=== PATIENT | male | born 1965 | race Caucasian/White ===

== ENCOUNTER 2022-12-29 11:06 | Outpatient (CLI) | payer BC ==
[2022-12-29] MEDS ORDERED: Iopamidol 370 76% 100 ML VIAL ONE (12:32)
== END 2022-12-29 11:07 | disposition home or self-care (01) ==
LOC: BICCT 11:06
PROVIDERS: ATTEND Surgery
DX: K57.92 Diverticulitis of intestine, part unspecified, without perforation or abscess without bleeding (principal); Z93.3 Colostomy status; K57.30 Diverticulosis of large intestine without perforation or abscess without bleeding
CPT/HCPCS: 74177; Q9967

== ENCOUNTER 2023-01-27 08:30 | Inpatient (IN) | payer BC ==
[2023-02-02] MEDS ORDERED: Midazolam HCl 2 mg/2 ml Vial ONE (07:59)
[2023-02-02] MEDS ORDERED: Bupivacaine PF 0.5% 30 ML VIAL ONE (07:59)
[2023-02-02] MEDS ORDERED: fentaNYL 50 mcg/mL 1 mL Vial ONE ×4 (07:59→13:01)
[2023-02-02] MEDS ORDERED: Lidocaine 1% (PF) 30 ML VIAL ONE (07:59)
[2023-02-02] MEDS ORDERED: fentaNYL PF 100 MCG/2 ML SYRINGE ONE (09:31)
[2023-02-02] MEDS ORDERED: Sodium Chloride 0.9% 100 ML ONE (09:34)
[2023-02-02] MEDS ORDERED: cefOXitin 2 GM VIAL ONE (09:34)
[2023-02-02] MEDS ORDERED: Glycopyrrolate 0.2 MG/ML 5 ML SYRINGE ONE (09:47)
[2023-02-02] MEDS ORDERED: Bupivacaine HCl 0.5%/Epinephrine 1:200,000/PF 30 ml Vial ONE (09:47)
[2023-02-02] MEDS ORDERED: PROPOFOL 200 MG/20 ML VIAL ONE (09:47)
[2023-02-02] MEDS ORDERED: Dexamethasone 20 MG/5 ML VIAL ONE ×2 (09:47)
[2023-02-02] MEDS ORDERED: PHENYLEPHRINE-NS 100 MCG/ML 10 ML SYRINGE ONE (09:47)
[2023-02-02] MEDS ORDERED: NEOSTIGMINE 3 MG/3 ML SYR 3 MG/3 ML SYRINGE ONE (09:47)
[2023-02-02] MEDS ORDERED: Ondansetron PF 4 MG/2 ML Vial ONE (09:47)
[2023-02-02] MEDS ORDERED: Rocuronium Bromide 10 MG/ML (10ML VIAL) ONE (09:47)
[2023-02-02] MEDS ORDERED: ePHEDrine Sulfate 50 MG/10 ML VIAL ONE (09:47)
[2023-02-02] MEDS ORDERED: Lidocaine 1% PF 5 ML VIAL ONE (09:47)
[2023-02-02] MEDS ORDERED: Ketorolac Tromethamine 30 MG/ML VIAL IVP PRN (12:29)
[2023-02-02] MEDS ORDERED: Promethazine HCl 25 MG/ML VIAL IM PRN ×2 (12:29→13:45)
[2023-02-02] MEDS ORDERED: Ondansetron PF 4 MG/2 ML Vial IVP PRN ×2 (12:29→13:45)
[2023-02-02] MEDS ORDERED: Ipratropium/Albuterol 3 ML NEB NEB PRN (12:29)
[2023-02-02] MEDS ORDERED: hydrALAZINE 20 MG/ML VIAL SLOW IVP PRN (12:29)
[2023-02-02] MEDS ORDERED: Ketorolac Tromethamine 30 MG/ML VIAL ONE (13:08)
[2023-02-02] MEDS ORDERED: diphenhydrAMINE 25 MG CAP PO PRN (13:45)
[2023-02-02] MEDS ORDERED: Naloxone HCl 0.4 mg/ml Vial IV PRN (13:45)
[2023-02-02] MEDS ORDERED: Zolpidem Tartrate 5 MG TAB PO PRN (13:45)
[2023-02-02] MEDS ORDERED: diphenhydrAMINE 50 MG/ML VIAL IM/IV PRN (13:45)
[2023-02-02] MEDS: D5 1/2 NS w/20 mEq KCL 1,000 ML IV SCH (16:09)
[2023-02-02] MEDS: Acetaminophen 325 MG TAB PO SCH ×2 (16:24→21:33)
[2023-02-02] MEDS: cefOXitin 2 GM in Sodium Chloride 0.9% 100 ML IVPB SCH (17:41)
[2023-02-02] MEDS: Famotidine 20 MG TAB PO SCH (21:33)
[2023-02-02] MEDS: Famotidine/PF 20 mg/2ml Vial SLOW IVP SCH (21:34)
[2023-02-03] MEDS: cefOXitin 2 GM in Sodium Chloride 0.9% 100 ML IVPB SCH (01:13)
[2023-02-03] MEDS: Acetaminophen 325 MG TAB PO SCH ×4 (01:14→21:54)
[2023-02-03] MEDS: D5 1/2 NS w/20 mEq KCL 1,000 ML IV SCH ×4 (01:14→21:58)
[2023-02-03 05:41] LABS: #Monocytes 1.8 thou/uL (0.11-0.59); #Neutrophils 10.5 thou/uL (1.40-6.50); %Basophils 0.1 % (0.0-1.0); %Eosinophils 0.1 % (0.0-10.0); %Lymphocytes 10.5 % (21.0-51.0); %Monocytes 13.1 % (0.0-10.0); %Neutrophils 75.8 % (42.0-75.0); Hemoglobin 14.5 g/dL (14.0-18.0); Mean Corpuscular HGB CONC 34.7 g/dL (32.0-36.0); Mean Corpuscular Hemoglobin 31.1 pg (27.0-31.0); Mean Corpuscular Volume 89.7 fl (78.0-98.0); Mean Platelet Volume 9.1 fL (7.4-10.4); Platelet Count 275 10x3/uL (130-400); RBC Distribution Width 13.4 % (11.5-14.5); Red Blood Cell (RBC) Count 4.66 mill/uL (4.70-6.10); White Blood Cell (WBC) Count 13.9 10x3/uL (4.8-10.8)
[2023-02-03] MEDS: Famotidine 20 MG TAB PO SCH ×2 (08:55→21:54)
[2023-02-03 09:16] LABS: Anion Gap 17 mmol/L (10-20); Calc. Creatinine Clearance 91 mL/min (70-130); Calcium 8.8 mg/dL (7.8-10.44); Carbon Dioxide 17 mmol/L (22-29); Chloride 105 mmol/L (98-107); Glucose 146 mg/dL (70-105); Potassium 4.5 mmol/L (3.5-5.1); Sodium 134 mmol/L (136-145)
[2023-02-03 09:17] LABS: BUN (Urea Nitrogen) 23 mg/dL (8.4-25.7); Estimated GFR 69
[2023-02-03] MEDS: Fentanyl CADD 100 ML IVPB SCH (10:07)
[2023-02-03] MEDS: Famotidine/PF 20 mg/2ml Vial SLOW IVP SCH ×2 (13:27→21:56)
[2023-02-04] MEDS: Acetaminophen 325 MG TAB PO SCH ×4 (01:32→18:59)
[2023-02-04] MEDS: Fentanyl CADD 100 ML IVPB SCH (02:25)
[2023-02-04] MEDS: D5 1/2 NS w/20 mEq KCL 1,000 ML IV SCH ×4 (03:05→23:16)
[2023-02-04] MEDS: Famotidine/PF 20 mg/2ml Vial SLOW IVP SCH ×2 (10:09→21:19)
[2023-02-04] MEDS: Famotidine 20 MG TAB PO SCH ×2 (10:10→21:15)
[2023-02-04] MEDS ORDERED: HYDROcodone/Acetaminophen 10/325 mg Tablet PO PRN ×3 (13:20→13:21)
[2023-02-04] MEDS ORDERED: fentaNYL 50 mcg/mL 1 mL Vial SLOW IVP PRN (13:24)
[2023-02-04 14:10] VITALS: BMI 32.9
[2023-02-04] MEDS: HYDROcodone/Acetaminophen 10/325 mg Tablet PO PRN ×2 (17:28→21:15)
[2023-02-04] MEDS: traMADol HCl 50 MG TAB PO PRN (18:58)
[2023-02-05] MEDS: traMADol HCl 50 MG TAB PO PRN ×3 (00:35→11:14)
[2023-02-05] MEDS: Acetaminophen 325 MG TAB PO SCH ×2 (03:06→09:23)
[2023-02-05] MEDS: D5 1/2 NS w/20 mEq KCL 1,000 ML IV SCH (07:17)
[2023-02-05 08:08] VITALS: TEMP 99.1
[2023-02-05] MEDS: HYDROcodone/Acetaminophen 10/325 mg Tablet PO PRN (09:23)
[2023-02-05] MEDS: Famotidine 20 MG TAB PO SCH (09:24)
[2023-02-05] MEDS: Famotidine/PF 20 mg/2ml Vial SLOW IVP SCH (09:24)
[2023-02-05 12:11] VITALS: BP 134/81
== END 2023-02-05 12:05 | disposition home or self-care (01) | DRG 331 ==
LOC: SURG A 02-02 07:07 → SJJU 02-02 15:28
PROVIDERS: ADMIT Surgery; ATTEND Surgery
PROC: 0DBH8ZZ Excision of Cecum, Via Natural or Artificial Opening Endoscopic (ICD-10-PCS; 2023-02-01)
PROC: 0DBN0ZZ Excision of Sigmoid Colon, Open Approach (ICD-10-PCS; principal; 2023-02-02)
DX: K94.03 Colostomy malfunction (principal); D12.0 Benign neoplasm of cecum; K57.30 Diverticulosis of large intestine without perforation or abscess without bleeding; Z87.891 Personal history of nicotine dependence; Z90.49 Acquired absence of other specified parts of digestive tract
CPT/HCPCS: 36415; 80048; 85025; 88304; 88305; C1713; C1776; J0694; J1100; J1650; J1885; J2001; J2250; J2405; J2704; J3010; J3480; J3490; S0020; S0028

== ENCOUNTER 2023-02-01 08:11 | Day surgery (SDC) | payer BC ==
[2023-01-27 09:09] VITALS: BMI 32.8
[2023-02-01] MEDS ORDERED: PROPOFOL 200 MG/20 ML VIAL ONE (10:41)
[2023-02-01] MEDS ORDERED: Lidocaine 1% PF 5 ML VIAL ONE (10:41)
== END 2023-02-01 12:00 | disposition home or self-care (01) ==
LOC: SDC 08:11
PROVIDERS: ATTEND Internal Medicine Gastroenterology
PROC: 0DBH8ZZ Excision of Cecum, Via Natural or Artificial Opening Endoscopic (ICD-10-PCS; principal; 2023-02-01)
DX: Z12.11 Encounter for screening for malignant neoplasm of colon (principal); D12.0 Benign neoplasm of cecum; K57.30 Diverticulosis of large intestine without perforation or abscess without bleeding; Z87.891 Personal history of nicotine dependence; Z90.49 Acquired absence of other specified parts of digestive tract
CPT/HCPCS: 88305; J2704